=== PATIENT | female | born 2005 | race African-American/Black ===

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

== ENCOUNTER 2025-02-24 19:14 | Emergency (ER) | payer OTHER ==
[~2025-02-24] VITALS: Ht 165.1 cm; Wt 77.0 kg
[~2025-02-24 19:14] MED LIST: FAMO40TA70 MT; P20 MT
[2025-02-24 19:18] VITALS: TEMP 37.1; O2SAT 100
[2025-02-24 20:21] LABS: HCG SCREEN NEGATIVE
[2025-02-24] MEDS ORDERED: B50 MT (21:25)
[2025-02-24] MEDS ORDERED: P50 MT (21:25)
[2025-02-24] MEDS ORDERED: FAMO-135 MT (21:26)
[2025-02-24] MEDS ORDERED: EPIN0.3P3 IM (21:26)
[2025-02-24] MEDS: METHYLPREDNISOLONE SOD SUCC 125MG/2ML (ACT-O-VIAL) IV ONE (21:41)
[2025-02-24] MEDS: FAMOTIDINE 20MG/2ML VIAL IV ONE (21:41)
[2025-02-24 22:07] VITALS: BP 122/75; PULSE 81; RESP 20; O2SAT 98
== END 2025-02-24 22:17 | disposition home or self-care (01) ==
LOC: ER 19:14
DX: T78.2XXA Anaphylactic shock, unspecified, initial encounter (principal); J45.909 Unspecified asthma, uncomplicated; Z79.899 Other long term (current) drug therapy; X58.XXXA Exposure to other specified factors, initial encounter; Y93.89 Activity, other specified; Y92.89 Other specified places as the place of occurrence of the external cause; Y99.8 Other external cause status
CPT/HCPCS: 84703; 96374; 96375; 99284; J3490; J2919; Z7610 ×3